=== PATIENT | female | born 1970 | race Caucasian/White ===

== ENCOUNTER 2016-09-26 10:41 | Emergency (ER) | payer BC ==
[~2016-09-26] VITALS: Ht 167.6 cm; Wt 87.9 kg
[~2016-09-26 10:41] MED LIST: BIRTH CONTROL PILLS; IBUP200C42 PO
[2016-09-26 10:44] VITALS: Ht 167.6 cm; Wt 87.9 kg
--- NOTE | 2016-09-26 10:47 | NUR ---
EKG EKG TAKEN AND GIVEN TO DR SANCHEZ
--- NOTE | 2016-09-26 11:09 | NUR ---
CHEFS IN ROOM FOR VENIPUNCTURE.
--- NOTE | 2016-09-26 11:11 | NUR ---
DR DR SANCHEZ AT BEDSIDE.
--- NOTE | 2016-09-26 11:14 | NUR ---
XRY PORTABLE XRY AT BEDSIDE.
--- NOTE | 2016-09-26 11:19 | ERPDOC ---
Departure Disposition Decision Date: Sep 26, 2016 Disposition Decision Time: 12:18 Disposition: 01 DISCHARGED HOME, SELF-CARE Impression Impression Impression: Primary Impression: Chest wall pain Severity: Mild Condition: Improved Seen By: Physician only Referrals: STEPHAN DASILVA DO (Family) 1 Day Patient Instructions: Chest Wall Pain (ED) Problems/Meds/Labs Reviewed?: Yes Medications reviewed and manag: Yes Follow up care ordered?: Yes Mental Status: Alert, Oriented Scripts Naproxen (Naprosyn) 500 Mg Tablet 1 TAB PO BID Y for PAIN for 10 Days, #20 TAB 0 Refills Prov: DEVORAH SANCHEZ 09/26/16 HPI - General Medical General Chief Complaint: Chest Pain Stated Complaint: TIGHTNESS/HEAVINESS IN CHEST Time Seen by Provider: 10:56 Source: patient Exam Limitations: no limitations HPI - General Medical Initial Comments 45-year-old female presents to emergency department with a chief complaint of left sided chest discomfort. Patient noted onset of symptoms while at home at approximately 5 PM yesterday afternoon. Symptoms have been persistent in nature since onset. Patient describes the pain as an achy pressure sensation. No radiation. Pain is mild in nature. She notes that the pain is easily reproducible with pushing on the affected area or movement of the chest wall. No other complaints or associated symptoms. Patient has no risk factors for coronary artery disease. No familial history of coronary artery disease. No other complaints or associated symptoms. Occurred At: home Onset: Constant Allergies: Coded Allergies: No Known Allergies (Unverified , 01/24/12) Past History Past Medical History Pt denies signifigant PMH Surgical History Denies Surgeries General: other Family History Family History: Negative Family PMH: FOUND: other Vaccines Hx Influenza Vaccination: No Hx Pneumococcal Vaccination: No Social History Smoking Status: Never smoker Substance Use Type: does not use Alcohol Intake: none Review of Systems Constitutional Constitutional: DENIES: chills, fever Eyes General: DENIES: erythema, exudate Lids/Accessories: DENIES: erythema, swelling Vision: DENIES: acuity, blurring ENMT Ears: DENIES: drainage, erythema, pain Hearing: DENIES: hearing loss Balance: DENIES: ataxia, falling to one side Sinuses: DENIES: congestion, pain Nose: DENIES: nosebleeds, pain Mouth/Throat: DENIES: painful swallowing, sore throat Teeth: DENIES: pain Jaw: DENIES: pain Cardiovascular Cardiac: chest pain, DENIES: dyspnea on exertion Rhythm/Rate: DENIES: irregular beat, palpitations Vascular: DENIES: pedal edema, unilateral swelling Pulmonary Respiratory: DENIES: cough, dyspnea, pleuritic chest pain, sputum GI Upper Abdomen: DENIES: nausea, pain, vomiting Lower Abdomen: DENIES: diarrhea, pain General: DENIES: dysuria, frequency Musculoskeletal General: DENIES: joint pain, pain, tenderness Integumentary Skin: DENIES: itching, rash Neurological General: DENIES: headache, numbness, weakness Psychiatric Psychiatric: DENIES: emotional instability, suicidal ideation/attempt Endocrine Endocrine: DENIES: polydipsia, polyphagia Hematologic/Lymphatic Hematologic/Lymphatic: DENIES: frequent nosebleeds, lymphadenopathy Allergic/Immunological Allergic/Immunoligical: DENIES: allergic reactions, hives Physical Exam General General Nourishment: well nourished, well developed, appears stated age, no acute distress, adult General Body Habitus: well groomed Vitals and Pain First Documented Vital Signs Date Time Temp Pulse Resp B/P Pulse Ox O2 Delivery O2 Flow Rate FiO2 09/26/16 10:44 98.2 73 18 117/77 99 Room Air Weight: Kilograms: Height (feet): Height (inches): Triage Pain Scale: RN VS reviewed by Provider: Yes Normal Exams: Head: Normocephalic w/o trauma Eyes: Pupils are PERRLA w/ EOMI, No scleral icterus, irritation, or foreign bodies noted ENMT: No facial trauma, nasal exudates, pharyngeal erythema, or exudates are noted Dental: No fractured, loose, or missing teeth noted Neck: Full range of motion, without adenopathy, JVD, bruits or thyromegaly Chest/Resp: Clear all ballard, with good airflow, and symmetry bilaterally CV: Regular rate and rhythm, without murmur or gallop, Pulses 2+ all extremities, capillary refill, <2 seconds all ext., no pedal edema noted Abdomen: Bowel sounds positive, soft, non-tender, non-distended, no hepatosplenomegaly, masses or bruits noted Lymphatic: No lymphadenopathy, or lymphedema noted Musculoskeletal: No tenderness, or deformity noted, good range of motion, all extremities Integumentary: No rashes, hives, or bruising noted, hair and nails, without abnormality Neurologic: Patient is alert, and oriented, cranial nerves, motor/sensory/ cerebellar, exams w/o gross deficits, to observation Psychiatric: Patient exhibits, appropriate attention, emotion and affect Musculoskeletal (brief) Comments Chest wall - left-sided chest wall is tender to palpation exactly reproduces symptoms. No rash. Differential Diagnoses Considering: Acute IA, Pulmonary Embolus, Other (chest wall pain/ costochondritis) Progress Results/Orders Orders Procedure Category Date Status Time EKG EKG 09/26/16 Taken Cbc W/Auto LAB 09/26/16 Complete Diff-Reflex Manual Cmp - Comprehensive LAB 09/26/16 Complete Metabolic Troponin I W LAB 09/26/16 Complete Hemolysis Index Chest 1 View RAD 09/26/16 Resulted 10:56 D-Dimer LAB 09/26/16 Complete 11:54 Naproxen (Naprosyn PHA 09/26/16 Complete 500mg) 12:30 Lab Results Laboratory Tests Test 09/26/16 11:13 White Blood Count 6.5T/MM3 Red Blood Count 4.43M/MM3 Hemoglobin 13.0GM/DL Hematocrit 39.7% Mean Corpuscular Volume 89.6UM3 Mean Corpuscular Hemoglobin 29.3UUG Mean Corpuscular Hemoglobin Concent 32.7GM/DL RDW Standard Deviation 41.1FL Platelet Count 229T/MM3 Mean Platelet Volume 10.6UM3 Immature Granulocyte % (Auto) 0.2% Neutrophils (%) (Auto) 60.3% Lymphocytes (%) (Auto) 28.2% Monocytes (%) (Auto) 9.3% Eosinophils (%) (Auto) 1.5% Basophils (%) (Auto) 0.5% Absolute Immature Granulocyte (auto 0.01T/MM3 Absolute Neutrophils (auto) 3.9T/MM3 Absolute Lymphocytes (auto) 1.8T/MM3 Absolute Monocytes (auto) 0.6T/MM3 Absolute Eosinophils (auto) 0.1T/MM3 Absolute Basophils (auto) 0.0T/MM3 D-Dimer < 150NG/ML Turbidity < 20 Sodium Level 142MEQ/L Potassium Level 4.0MEQ/L Chloride Level 107MEQ/L Carbon Dioxide Level 26MEQ/L Anion Gap 9MEQ/L Blood Urea Nitrogen 13.0MG/DL Creatinine 0.6MG/DL Glomerular Filtration Rate Calc 108 BUN/Creatinine Ratio 22RATIO Glucose Level 97MG/DL Calculated Osmolality 273MOSM/KG Calcium Level 8.9MG/DL Total Bilirubin 0.90MG/DL Icterus Index < 2 Aspartate Amino Transf (AST/SGOT) 28U/L Alanine Aminotransferase (ALT/SGPT) 31U/L Alkaline Phosphatase 58U/L Troponin I < 0.012ng/ml Total Protein 6.7G/DL Albumin 3.6G/DL Globulin 3.1G/DL Albumin/Globulin Ratio 1.2RATIO Chemistry Specimen Hemolysis < 15 Medications Current ED Medications Naproxen (NAPROSYN 500mg) 500 mg O ONCE PO Last administered on 09/26/16t 12:46 ; Start 09/26/16 at 12:30; Stop 09/26/16 at 12:31; Status DC Naproxen (NAPROSYN 250mg) 500 mg O ONCE PO ; Start 09/26/16 at 12:45; Stop at 12:46; Status Cancel Progress Progress Labs/imaging were discussed in detail with the patient and questions are answered. Patient is given analgesic pain medication with improvement of symptoms in the emergency department. Patient symptoms have been persistent in nature since 5 PM last night. She has a normal EKG. Negative d-dimer. Negative troponin. Patient has effectively ruled out ACS as a cause of her symptoms. Patient's symptoms are reproducible. Patient is discharged home in improved condition. Patient is to follow-up as directed. She is to return to the emergency Department if her condition worsens or changes in any manner. She is in agreement with the current plan of management. Prescription for Naprosyn is provided. EKG EKG : Rate: 60-100 Rhythm: sinus Mouthcard: normal QRS: normal Intervals: normal ST/T: normal Interpreted by: signing physician Xray Xray : Xray: CXR Portable Interpretation: Normal, Interpreted by Me, Reviewed Written Report DEVORAH SANCHEZ DO Sep 26, 2016 11:19
--- NOTE | 2016-09-26 11:21 | NUR ---
STATUS PT REPORTS CONTINUED 5/10 L CHEST HEAVINESS. PT DENIES SHORTNESS OF BREATH, STATES SHE WAS NAUSEOUS LAST NIGHT, NO LONGER AT THIS TIME. EDUCATED PT REGARDING PLAN OF CARE AND DURATION OF TIME FOR TEST RESULTS. UNDERSTANDING VERBALIZED.
[2016-09-26 11:25] LABS: BASOPHILS % (AUTO) 0.5 % (0-2); EOSINOPHILS # (AUTO) 0.1 T/MM3 (0-0.5); EOSINOPHILS % (AUTO) 1.5 % (0-4); HCT - HEMATOCRIT 39.7 % (36-46); IMMATURE GRANULOCYTE # (AUTO) 0.01 T/MM3 (0.00-0.03); IMMATURE GRANULOCYTE % (AUTO) 0.2 % (0.0-0.5); LYMPHOCYTES # (AUTO) 1.8 T/MM3 (1-4.8); LYMPHOCYTES % (AUTO) 28.2 % (23-45); MEAN CORPUSCULAR HGB 29.3 UUG (26-34); MEAN CORPUSCULAR HGB CONC(MCHC 32.7 GM/DL (31-37); MEAN CORPUSCULAR VOLUME 89.6 UM3 (80-100); MEAN PLATELET VOLUME 10.6 UM3 (9.4-12.4); MONOCYTES # (AUTO) 0.6 T/MM3 (0-0.8); MONOCYTES % (AUTO) 9.3 % (0-9.0); NEUTROPHILS #(AUTO)-ABSOLUTE 3.9 T/MM3 (1.8-7.7); NEUTROPHILS % (AUTO) 60.3 % (33-66); RED BLOOD COUNT 4.43 M/MM3 (4.00-5.20); WBC - WHITE BLOOD COUNT 6.5 T/MM3 (4.5-11.0)
--- NOTE | 2016-09-26 11:29 | DI ---
Indication: ITS.REASON: Left-sided chest tightness and pain radiating to the shoulder for two days PROCEDURE: CHEST 1 VIEW: Encounter: Initial Comparison: None FINDINGS: The lungs are clear. There is no abnormal airspace opacity, pleural effusion or pneumothorax identified. The heart size, pulmonary vasculature and mediastinum are within normal limits. No significant skeletal abnormality is seen. IMPRESSION: No acute cardiopulmonary abnormality. .
[2016-09-26] MEDS ORDERED: NO ROUTINE MEDS (11:30)
[2016-09-26 11:36] LABS: ALBUMIN 3.6 G/DL (3.5-5.0); ALBUMIN/GLOBULIN RATIO 1.2 RATIO (1.1-2.2); ALKALINE PHOSPHATASE 58 U/L (38-126); ALT (SGPT) 31 U/L (9-52); ANION GAP 9 MEQ/L (5-15); AST (SGOT) 28 U/L (14-36); BUN/CREATININE RATIO 22 RATIO (6-26); CALCIUM 8.9 MG/DL (8.4-10.2); CHLORIDE 107 MEQ/L (98-107); CO2 - CARBON DIOXIDE 26 MEQ/L (22-30); CREATININE 0.6 MG/DL (0.7-1.2); GLOMERULAR FILTRATION RATE 108; GLUCOSE 97 MG/DL (65-110); SODIUM 142 MEQ/L (134-144); TOTAL PROTEIN 6.7 G/DL (6.3-8.2)
[2016-09-26] MEDS ORDERED: NAPR500T PO (12:20)
[2016-09-26] MEDS ORDERED: NAPROXEN 500 MG TABLET PO ONE (12:30)
[2016-09-26] MEDS ORDERED: NAPROXEN 250 MG TABLET PO ONE (12:45)
[2016-09-26 12:49] VITALS: BP 105/68; PULSE 68; RESP 13; TEMP 98.2; O2SAT 98
--- NOTE | 2016-09-26 12:49 | NUR ---
DISMISS PT AMBULATORY TO LOBBY, ACCOMPANIED BY .
== END 2016-09-26 12:49 | disposition home or self-care (01) ==
LOC: ED 10:41
DX: R07.89 Other chest pain (principal)
CPT/HCPCS: 36415; 80053; 84484; 85025; 85379; 93005